=== PATIENT | female | born 1985 | race Hispanic/Latino ===

== ENCOUNTER 2019-01-30 10:18 | Emergency (ER) | payer OTHER, SELFPAY ==
[2019-01-30 10:28] VITALS: BP 121/75; PULSE 102; RESP 18; TEMP 37.3; O2SAT 96
[2019-01-30] MEDS: KETOROLAC 60 MG/2 ML VIAL 30 MG IV (11:32)
[2019-01-30] MEDS: ONDANSETRON 4 MG/2 ML INJ IV (11:32)
[2019-01-30] MEDS: SODIUM CHLORIDE 0.9% 1,000 ML 1000 ML IV (11:33)
[2019-01-30 11:42] LABS: Add Manual Diff / Slide Review NO; Alanine Aminotransferase 17 IU/L (9-52); Albumin 4.3 g/dL (3.5-5.0); Albumin Globulin Ratio 1.3 (1.0-2.8); Alkaline Phosphatase 69 U/L (38-126); Aspartate Aminotransferase 16 IU/L (14-36); Basophils Absolute Auto 0 /uL (0-100); Basophils Percent Auto 0.5 % (0-2); Bilirubin Total 0.3 mg/dL (0.2-1.3); Blood Urea Nitrogen 7 mg/dL (7-17); Carbon Dioxide 24 mmol/L (22-32); Chloride 105 mmol/L (98-107); Eosinophils Absolute Auto 0 /uL (0-450); Eosinophils Percent Auto 0.3 % (2-4); Estimated Glomerular Filt Rate > 60.0 mL/min (>60); Globulin 3.2 g/dL (1.7-4.1); Glucose 105 mg/dL (70-100); HEMOLYSIS < 15 (0-50); Hematocrit 38.3 % (36-46); Hemoglobin 13.2 g/dL (12.0-16.0); Lymphocytes Absolute Auto 1100 /uL (1100-4500); Lymphocytes Percent Auto 12.7 % (25-40); Mean Corpuscular HGB Conc 34.4 % (30-36); Mean Corpuscular Hemoglobin 29.7 PG (26-34); Mean Corpuscular Volume 86.4 fL (80-100); Monocytes Absolute Auto 500 /uL (0-900); Monocytes Percent Auto 5.6 % (3-14); Neutrophils Absolute Auto 7200 /uL (1500-7000); Neutrophils Percent Auto 80.9 % (50-75); Platelet Count 255 X10^3/uL (150-400); Potassium 4.2 mmol/L (3.4-5.1); Red Blood Cell Count 4.44 X10^6/uL (4.0-5.2); Red Cell Distribution Width 12.7 % (11.6-14.8); Sodium 140 mmol/L (137-145); Total Protein 7.5 g/dL (6.3-8.2); White Blood Cell Count 8.9 X10^3/uL (4.5-11.0)
--- NOTE | 2019-01-30 12:01 | ED.NAVMDI ---
HPI - Nausea/Vomiting/Diarrhea General Chief complaint: Nausea/Vomiting/Diarrhea Stated complaint: THROWING UP Time Seen by Provider: 01/30/19 11:27 Source: patient Mode of arrival: ambulatory Limitations: no limitations History of Present Illness HPI Narrative: Patient is a 33-year-old diagnosed with strep 2 days. She is given shot of Rocephin in pen VK. She says she has been so nauseous due to air or anything hitting her throat that she immediately gets nauseous and throws up and has been unable to take any of her medication. She says her throat is feeling much better. She is not able tolerate food or fluids. Related Data Home Medications Medication Instructions Recorded Confirmed levonorgestrel [Mirena] 52 mg INTRAU QDAY #0 12/30/17 Previous Rx's Medication Instructions Recorded albuterol sulfate [Proventil HFA] 2 puff INH Q4HP PRN #1 u 04/17/17 [VSL#3] 1 cap PO TID #90 cap 12/03/17 ketoconazole [Nizoral] 1 joann TOPICAL SEE INSTRUCTIONS 12/03/17 #120 ml ondansetron HCl 4 mg tablet 4 mg PO Q6-8H PRN #14 tab 01/28/19 penicillin V potassium 500 mg 500 mg PO Q8H 10 Days #30 tab 01/28/19 tablet metoclopramide HCl [Reglan] 5 mg PO Q6H PRN #14 tab 01/30/19 Allergies Allergy/AdvReac Type Severity Reaction Status Date / Time azithromycin [AZITHROMYCIN] Allergy Mild RASH Verified 01/30/19 10:33 hydromorphone [HYDROMORPHONE] Allergy Mild ITCHING Verified 01/30/19 10:33 FROM DILAUDID shellfish derived Allergy Mild RASH/SWOLLE Verified 01/30/19 10:33 [SHELLFISH DERIVED] N latex [LATEX] Allergy Unknown Verified 01/30/19 10:33 Review of Systems Review of Systems ROS Unobtainable: All systems reviewed & are unremarkable except as noted in HPI and below Constitutional Denies chills, Denies fever(s), Denies lethargy and Denies weakness Eyes Denies change in vision, Denies eye discharge, Denies irritation and Denies loss of vision ENT Ears, Nose, Mouth, and Throat: Reports as per HPI, Denies change in voice, Denies neck pain and Reports sore throat Cardiovascular Denies chest pain, Denies irregular heart rhythm, Denies lightheadedness, Denies palpitations, Denies dyspnea, Denies dyspnea on exertion and Denies orthopnea Respiratory Denies cough, Denies dyspnea, Denies dyspnea on exertion and Denies wheezing Gastrointestinal Gastrointestinal: Denies abdominal pain, Denies diarrhea, Reports nausea and Reports vomiting Genitourinary Denies hematuria, Denies flank pain, Denies urinary incontinence and Denies urinary urgency Musculoskeletal Denies neck pain Integumentary/Breasts Denies pruritus, Denies erythema, Denies rash and Denies wounds Neurologic Denies loss of vision and Denies weakness Endocrine Denies palpitations Allergic/Immunologic Denies wheezing [facility] Medical History Abnormal Pap smear of cervix (Resolved 08/2010) Surgical History History of esophagogastroduodenoscopy (EGD) (Resolved 08/2016) Status post endoscopic retrograde cholangiopancreatography (Resolved 07/2013) Status post laparoscopic cholecystectomy (Resolved 07/2013) Family History Mother Asthma Graves' disease History of thyroidectomy Sister Asthma Daughter Asthma Social History Smoking Status: Never smoker Family History Mother Asthma Graves' disease History of thyroidectomy Sister Asthma Daughter Asthma Social History Smoking Status: Never smoker Exam Initial Vital Signs Initial Vital Signs: Vital Signs Temperature 99.1 F 01/30/19 10:28 Pulse Rate 102 H 01/30/19 10:28 Respiratory Rate 18 01/30/19 10:28 Blood Pressure 121/75 01/30/19 10:28 Pulse Oximetry 96 01/30/19 10:28 GENERAL: Well-appearing, well-nourished and in no acute distress. HEENT: Head atraumatic,EOMI, pupils reactive, face symmetric, moist mucous membranes PHARYNX: No erythema, no tonsillar exudate, no cervical lymphadenopathy CARDIOVASCULAR: Regular rate and rhythm without murmurs, rubs or gallops. RESPIRATORY: Breath sounds equal bilaterally, no wheezes rales or rhonchi. ABDOMEN: Soft, nontender. Normoactive bowel sounds all 4 quadrants. No guarding or rebound. EXTREMITIES: Normal range of motion, no clubbing or edema. Neurovascularly intact NEUROLOGICAL: Alert and oriented x4.Normal gait and speech. Cranial nerves II through XII grossly intact. SKIN: Warm, dry, no laceration, no petechiae, no rashes or lesions. Course Orders Ordered: ED Orders 01/30/19 11:25 Complete Blood Count AUTO DIFF Stat Comprehensive Metabolic Panel Stat Discontinued Medications Sodium Chloride (Normal Saline 0.9%) 1,000 mls @ 1,000 mls/hr IV BOLUS ONE Stop: 01/30/19 12:15 Last Infusion: 01/30/19 12:35 Dose: 0 mls/hr Admin: 01/30/19 11:33 Dose: 1,000 mls/hr Ketorolac Tromethamine (Toradol) 30 mg IV NOW ONE Stop: 01/30/19 11:32 Last Admin: 01/30/19 11:32 Dose: 30 mg Metoclopramide HCl (Reglan) 10 mg IV NOW ONE Stop: 01/30/19 12:01 Last Admin: 01/30/19 12:12 Dose: 10 mg Ondansetron HCl (Zofran) 4 mg IV NOW ONE Stop: 01/30/19 11:17 Last Admin: 01/30/19 11:32 Dose: 4 mg Vital Signs - 8 hr 01/30/19 10:28 01/30/19 13:45 Temperature 99.1 F Pulse Rate 102 H 101 H Respiratory Rate 18 20 Blood Pressure 121/75 123/76 Pulse Oximetry 96 98 MDM - Nausea/Vomiting/Diarrhea Lab Data Attestation: I reviewed the patient's lab results. Result diagrams: 01/30/19 11:25 01/30/19 11:25 Lab Results 01/30/19 01/30/19 Range/Units 11:25 11:25 WBC 8.9 (4.5-11.0) X10^3/uL RBC 4.44 (4.0-5.2) X10^6/uL Hgb 13.2 (12.0-16.0) g/dL Hct 38.3 (36-46) % MCV 86.4 (80-100) fL MCH 29.7 (26-34) PG MCHC 34.4 (30-36) % RDW 12.7 (11.6-14.8) % Plt Count 255 (150-400) X10^3/uL Neut % (Auto) 80.9 H (50-75) % Lymph % (Auto) 12.7 L (25-40) % [place] % (Auto) 5.6 (3-14) % Eos % (Auto) 0.3 L (2-4) % Baso % (Auto) 0.5 (0-2) % Neut # (Auto) 7200 H (5966-8254) /uL Lymph # (Auto) 1100 (3445-7531) /uL [place] # (Auto) 500 (0-900) /uL Eos # (Auto) 0 (0-450) /uL Baso # (Auto) 0 (0-100) /uL Sodium 140 (137-145) mmol/L Potassium 4.2 (3.4-5.1) mmol/L Chloride 105 (98-107) mmol/L Carbon Dioxide 24 (22-32) mmol/L BUN 7 (7-17) mg/dL Creatinine 0.50 L (0.52-1.04) mg/dL Estimated GFR > 60.0 (>60) mL/min BUN/Creatinine Ratio 14.0 (6-22) Glucose 105 H (70-100) mg/dL Calcium 9.0 (8.4-10.2) mg/dL Total Bilirubin 0.3 (0.2-1.3) mg/dL AST 16 (14-36) IU/L ALT 17 (9-52) IU/L Alkaline Phosphatase 69 (38-126) U/L Total Protein 7.5 (6.3-8.2) g/dL Albumin 4.3 (3.5-5.0) g/dL Globulin 3.2 (1.7-4.1) g/dL Albumin/Globulin Ratio 1.3 (1.0-2.8) Point of Care Testing Test Results Negative Urine Dip Bedside Urine Glucose Negative Bedside Urine Bilirubin - Negative Bedside Urine Ketone - Negative Urine Specific [place] 1.015 Bedside Urine Occult Blood +/- Bedside Urine pH 6.5 Bedside Urine Protein - Negative Bedside Urine Urobilinogen - Negative Bedside Urine Nitrite - Negative Bedside Urine Leukocytes - Negative Esterase MDM Narrative Medical decision making narrative: Tolerating fluids overall feeling much better after Reglan. at this time would continue antibiotics as prescribed. Discharge Plan Departure Patient Disposition: Home Clinical Impression: Strep pharyngitis Discharge Date/Time: 01/30/19 13:46 Interventions: ED Discharge Assessment Last Done: 01/30/19 13:45 Instructions: DI for Strep Throat Activity Restrictions/Additional Instructions: *You have been diagnosed with strep throat *What to do: Blood work today is reassuring. Try to increase her fluid intake *Continue to take medications as directed Reglan 5 mg he every 6-8 hours if needed for nausea vomiting finish antibiotics as previously perscribed *Follow up with your primary care provider in 2-3 days *Return to ER if you should have inability to tolerate fluids or any new, worsening or concerning symptoms Prescriptions: New metoclopramide HCl [Reglan] 5 mg tablet 5 mg PO Q6H PRN (Reason: nausea and vomiting) Qty: 14 RF: 0 No Action albuterol sulfate [Proventil HFA] 90 MCG/PUFF HFA aerosol inhaler 2 puff INH Q4HP PRNQty: 1 RF: 3 ketoconazole [Nizoral] 2 % shampoo 1 joann Topical SEE INSTRUCTIONS Qty: 120 RF: 1 [VSL#3] 1 cap PO TID Qty: 90 RF: 0 levonorgestrel [Mirena] 1 EACH intrauterine device 52 mg INTRAU QDAY Qty: 0 RF: 0 penicillin V potassium 500 mg tablet 500 mg PO Q8H 10 Days Qty: 30 RF: 0 ondansetron HCl 4 mg tablet 4 mg PO Q6-8H PRN (Reason: nausea and vomiting) Qty: 14 RF: 0 Referrals: Khadra Brito DO [Primary Care Provider] -
[2019-01-30] MEDS: METOCLOPRAMIDE 10 MG/2 ML INJ IV (12:12)
--- NOTE | 2019-01-30 12:16 | PC.NURSE ---
Pt c/o IV site being painful. Site has no evidence of infiltration. No redness or puffiness. Fluids run freely without pain. It is offered to pull current IV out and have another nurse place another IV. Pt is nauseous and doesnt answer question of this. Zofran given although pt states its never worked the other 9 million times Breana had it. It is explained that this hospital does not have IV phenergan
[2019-01-30 13:45] VITALS: BP 123/76; PULSE 101; RESP 20; O2SAT 98
== END 2019-01-30 13:46 | disposition home or self-care (01) ==
PROVIDERS: Emergency Provider Emergency Medicine; PCP Family Medicine
DX: J02.0 Streptococcal pharyngitis (principal); R11.2 Nausea with vomiting, unspecified; R19.7 Diarrhea, unspecified
CPT/HCPCS: 36415; 36591; 80053; 81003; 81025; 85025; 96361; 96374; 96375; 99283; 99284; J1885; J2405; J2765

== ENCOUNTER → 2019-07-22 13:35 | Outpatient (CLI) | payer OTHER, SELFPAY | PROVIDERS: PCP Family Medicine; Visit Provider Physician Assistant | DX: J02.9 Acute pharyngitis, unspecified (principal) | CPT/HCPCS: 87070 ==

== ENCOUNTER → 2020-07-09 15:39 | Outpatient (CLI) | payer OTHER, SELFPAY | PROVIDERS: PCP Family Medicine; Visit Provider Physician Assistant | DX: J02.9 Acute pharyngitis, unspecified (principal) | CPT/HCPCS: 87070 ==

== ENCOUNTER → 2020-07-31 09:48 | Outpatient (CLI) | payer OTHER, SELFPAY ==
[2020-07-31 09:54] LABS: Bacteria Urine None Seen; RBC Urine None Seen (0-5/HPF); WBC Urine None Seen (0-5/HPF)
[2020-07-31 10:35] LABS: Appearance Urine UA CLEAR; Bilirubin Urine UA NEGATIVE (NEGATIVE); Color Urine UA YELLOW; Glucose Urine UA TRACE g/dL (Negative); Ketones Urine UA NEGATIVE (NEGATIVE); Leukocyte Esterase Urine UA NEGATIVE (NEGATIVE); Nitrite Urine UA NEGATIVE (Negative); Occult Blood Urine UA NEGATIVE (Negative); Protein Urine UA NEGATIVE (Negative); Urobilinogen Urine UA 0.2 E.U./dL (0.2)
[2020-07-31 10:43] LABS: Culture Indicated Urine Cult Not Indicated; Urine Comments Microscopic Normal
[2020-07-31 10:55] LABS: Add Manual Diff / Slide Review NO; Alanine Aminotransferase 27 IU/L (<35); Albumin 4.6 g/dL (3.5-5.0); Albumin Globulin Ratio 1.3 (1.0-2.8); Alkaline Phosphatase 72 U/L (38-126); Aspartate Aminotransferase 23 IU/L (14-36); BUN Creatinine Ratio 17.5 (6-22); Basophils Absolute Auto 100 /uL (0-100); Basophils Percent Auto 0.8 % (0-2); Bilirubin Total 0.7 mg/dL (0.2-1.3); Blood Urea Nitrogen 10 mg/dL (7-17); Calcium 9.2 mg/dL (8.4-10.2); Carbon Dioxide 29 mmol/L (22-32); Chloride 103 mmol/L (98-107); Eosinophils Absolute Auto 100 /uL (0-450); Eosinophils Percent Auto 1.6 % (2-4); Estimated Glomerular Filt Rate > 60.0 mL/min (>60); Globulin 3.5 g/dL (1.7-4.1); Glucose 99 mg/dL (70-100); HEMOLYSIS < 15 (0-50); Hematocrit 41.5 % (36-46); Hemoglobin 14.4 g/dL (12.0-16.0); Lipase 46 U/L (23-300); Lymphocytes Absolute Auto 2300 /uL (1100-4500); Lymphocytes Percent Auto 26.5 % (25-40); Mean Corpuscular HGB Conc 34.7 % (30-36); Mean Corpuscular Hemoglobin 30.6 PG (26-34); Mean Corpuscular Volume 88.1 fL (80-100); Monocytes Absolute Auto 500 /uL (0-900); Monocytes Percent Auto 6.1 % (3-14); Neutrophils Absolute Auto 5600 /uL (1500-7000); Platelet Count 291 X10^3/uL (150-400); Potassium 3.9 mmol/L (3.4-5.1); Red Blood Cell Count 4.71 X10^6/uL (4.0-5.2); Red Cell Distribution Width 12.9 % (11.6-14.8); Sodium 140 mmol/L (137-145); Total Protein 8.1 g/dL (6.3-8.2); White Blood Cell Count 8.6 X10^3/uL (4.5-11.0)
[2020-07-31 11:16] LABS: TSH w/ Reflex to FT4 2.32 uIU/mL (0.47-4.68)
== END ==
PROVIDERS: PCP Family Medicine; Referring Provider Family Medicine; Visit Provider Family Medicine
DX: R11.15 Cyclical vomiting syndrome unrelated to migraine (principal)
CPT/HCPCS: 36415; 80053; 81001; 83036; 83690; 84443; 85025

== ENCOUNTER → 2021-09-17 12:57 | Outpatient (CLI) | payer OTHER, SELFPAY ==
[2021-09-17 15:48] LABS: COVID19 -Nasal RAPID Negative (Negative)
== END ==
PROVIDERS: PCP Family Medicine; Referring Provider Family Medicine; Visit Provider Family Medicine
DX: Z01.812 Encounter for preprocedural laboratory examination (principal)
CPT/HCPCS: 87635

== ENCOUNTER 2022-06-06 23:50 | Emergency (ER) | payer OTHER, SELFPAY ==
[2022-06-07 00:02] VITALS: BP 138/88; PULSE 105; RESP 21; TEMP 36.6; O2SAT 98
--- NOTE | 2022-06-07 00:03 | ED_ITS ---
HPI - Headache General Chief Complaint: Headache Stated Complaint: MIGRAINE AND KEEP FOOD DOWN Time Seen by Provider: 06/07/22 00:02 History of Present Illness HPI Narrative: 36-year-old female nonsmoker with history of migraines presents with a chief complaint of 4 days of vomiting and then a gradually worsening migraine-type headache over the course of the day. She states this is rather typical for her course and she typically has vomiting prior to her headaches. She denies any f ever or chills and has had no trauma or injury. She states that her headache is generalized and intense and seems to be made worse by bright lights and loud noise. She denies any neurologic symptoms such as dizziness, gait disturbance or extremity numbness, tingling or weakness. Related Data Home Medications Medication Instructions Recorded Confirmed levonorgestrel 20 mcg/24 hours (7 52 mg INTRAU QDAY ##0 12/30/17 07/22/19 yrs) 52 mg intrauterine device (Mirena) Previous Rx's Medication Instructions Recorded albuterol sulfate 90 mcg/actuation 2 puff INH Q4HP PRN ##1 04/17/17 aerosol inhaler (Proventil HFA) ketoconazole 2 % shampoo (Nizoral) 1 joann topical SEE INSTRUCTIONS 12/03/17 #120 mL metoclopramide HCl 10 mg tablet 10 mg PO Q6H PRN nausea and 06/07/22 (Reglan) vomiting #20 tabs Allergies Allergy/AdvReac Type Severity Reaction Status Date / Time azithromycin [AZITHROMYCIN] Allergy Mild RASH Verified 07/14/20 15:48 hydromorphone [HYDROMORPHONE] Allergy Mild ITCHING Verified 07/14/20 15:48 FROM DILAUDID shellfish derived Allergy Mild RASH/SWOLLE Verified 07/14/20 15:48 [SHELLFISH DERIVED] N latex [LATEX] Allergy Unknown Verified 07/14/20 15:48 Review of Systems Review of Systems Narrative: GENERAL: Denies chills, fatigue, malaise, fever, sweats. HEENT: Denies sinus pain, ear pain, sore throat, difficulty swallowing, dizziness. RESPIRATORY: Denies dyspnea, cough, wheezing, hemoptysis, sputum. CARDIOVASCULAR: Denies chest pain, palpitations, orthopnea, edema, GASTROINTESTINAL: See HPI : Denies dysuria, frequency, incontinence, hematuria, urinary retention. MUSCULOSKELETAL: denies weakness, joint pain, or bony pain SKIN: Denies rash, skin lesions, or other NEUROLOGIC: See HPI PSYCHIATRIC: No concerning psychosocial issues. 12 point review of systems is negative except for those stated above Patient History Medical History (Updated 06/07/22 @ 01:51 by Roosevelt Lynn DO) Abnormal Pap smear of cervix (08/2010) Asthma (03/16/14) Gastroparesis (12/26/16) History of cervical dysplasia (06/27/11) Surgical History History of esophagogastroduodenoscopy (EGD) (08/2016) Status post endoscopic retrograde cholangiopancreatography (07/2013) Status post laparoscopic cholecystectomy (07/2013) Family History Mother Asthma Graves' disease History of thyroidectomy Sister Asthma Daughter Asthma Social History Smoking Status: Never smoker Smoking Status: Never smoker alcohol intake frequency: 0-2 drinks per day Substance Use Type: does not use Exam Narrative Exam Narrative: GENERAL: [36] year old patient appears stated age. Well-developed patient, in mild distress. HEAD: Atraumatic. Normocephalic. EYES: Pupils equal round and reactive. Extraocular motions intact. No scleral icterus. No injection or drainage. ENT: Nose without bleeding, purulent drainage. Throat without erythema, tonsillar hypertrophy or exudate. Airway patent. NECK: Trachea midline. Non tender CARDIOVASCULAR: Regular rate and rhythm without murmurs, gallops, or rubs. RESPIRATORY: Clear to auscultation. Breath sounds equal bilaterally. No wheezes, rales, or rhonchi. GASTROINTESTINAL: Abdomen soft, non-tender, nondistended. EXTREMITIES: No edema or joint tenderness. BACK: Nontender without deformity or crepitance. No flank tenderness. NEURO: AOx3. SKIN: No rash or erythema of visible areas NIH Stroke Scale 1a. LOC: Patient is alert and keenly responsive (0) 1b. LOC Questions: Patient answers both LOC questions accurately (0) 1c. LOC Commands: Patient performs both tasks correctly (0) 2. Best Gaze: Normal (0) 3. Visual: No visual loss (0) 4. Facial palsy: Normal symmetrical movements (0) 5. Motor arm: No drift (0) 6. Motor leg: No drift (0) 7. Limb ataxia: Absent (0) 8. Sensory: Normal (0) 9. Best language: No aphasia; normal (0) 10. Dysarthria: Normal (0) 11. Extinction and inattention: No abnormality (0) NIHSS: 0 Initial Vital Signs Initial Vital Signs: Vital Signs Temperature 98 F 06/07/22 00:02 Pulse Rate 105 H 06/07/22 00:02 Respiratory Rate 21 06/07/22 00:02 Blood Pressure 138/88 06/07/22 00:02 Pulse Oximetry 98 06/07/22 00:02 Oxygen Delivery Method 06/07/22 00:02 Course Orders Ordered: ED Orders 06/07/22 00:07 CT head/brain wo con Stat Sodium Chloride (Normal Saline 0.9%) 1,000 mls @ 1,000 mls/hr IV BOLUS ONE Stop: 06/07/22 02:11 Last Admin: 06/07/22 01:16 Dose: 1,000 mls/hr Documented By: KANDI Discontinued Medications Diphenhydramine HCl (Diphenhydramine 50 Mg/Ml Vial) 25 mg IV NOW ONE Stop: 06/07/22 00:04 Last Admin: 06/07/22 00:16 Dose: 25 mg Documented By: KANDI Sodium Chloride (Normal Saline 0.9%) 1,000 mls @ 1,000 mls/hr IV BOLUS ONE Stop: 06/07/22 01:02 Last Infusion: 06/07/22 01:17 Dose: 0 mls/hr Documented By: Admin: 06/07/22 00:16 Dose: 1,000 mls/hr Documented By: KANDI Ketorolac Tromethamine (Ketorolac 30 Mg/Ml Vial) 15 mg IV NOW ONE Stop: 06/07/22 00:35 Last Admin: 06/07/22 00:51 Dose: 15 mg Documented By: KANDI Metoclopramide HCl (Metoclopramide 10 Mg/2 Ml Inj) 10 mg IV NOW ONE Stop: 06/07/22 00:04 Last Admin: 06/07/22 00:16 Dose: 10 mg Documented By: KANDI Reevaluation(s) Reevaluation #1: Significant, though not complete resolution of symptoms Vital Signs Vital signs: Vital Signs - 8 hr 06/07/22 00:02 Temperature 98 F Pulse Rate 105 H Respiratory Rate 21 Blood Pressure 138/88 Pulse Oximetry 98 Oxygen Delivery Method Room Air MDM - Headache Imaging Data CT scan - head: Radiologist's Impression: [address] [address] [address] Scan Report Signed Patient: Linda Albrecht MR#: [id number] : 1985 Acct:[id number] Age/Sex: 36 / F Date of Service: 06/07/22 Loc: ED Accession Number: [id number] ?? Procedure: CT head/brain wo con Ordering Provider: Roosevelt Lynn D.O. PROCEDURE:? CT HEAD/BRAIN WO CON ? INDICATIONS:? worst headache, vomiting ? TECHNIQUE:? Noncontrast 4.5 mm thick angled axial sections acquired from the foramen magnum to the vertex, with coronal and sagittal reformats.? For radiation dose reduction, the following was used:? automated exposure control, adjustment of mA and/or kV according to patient size.? ? COMPARISON:? None. ? FINDINGS:? Image quality:? Excellent.? ? CSF spaces:? Basal cisterns are patent.? No extra-axial fluid collections.? Ventricles are normal in size and shape.? ? Brain:? No intracranial hemorrhage, mass, or mass effect.? Forbes-white matter interface appears preserved.? There are a few indistinct punctate densities within the bilateral basal ganglia suggestive of mild physiologic calcifications. ? Skull and face:? Calvarium and visualized facial bones are intact, without suspicious lesions.? ? Sinuses:? Visualized sinuses and mastoids are clear.? ? IMPRESSION:? ? 1. No definite acute intracranial abnormality. ? ? Dictated by: Mnia Velasquez M.D. on 06/07/2022 at 0:23 ? ? Approved by: Mina Velasquez M.D. on 06/07/2022 at 0:25 ? MDM Narrative Medical decision making narrative: Headache considerations include, but not limited to: Subarachnoid hemorrhage, but unlikely as patient denies sudden onset of pain, not worst of life, or neck pain Meningitis considered, but thought unlikely given lack of Brudzinski's, Kernig's sign, altered mental status or fever Giant cell arteritis considered, but thought unlikely given lack of unilateral findings, pain in episcopal, vision change HTN Emergency considered, but thought unlikely given normal vitals Other serious diagnoses considered unlikely given lack of red flag findings such as sudden onset, increasing frequency, immunocompromise, systemic signs (fever, chills, stiff neck, or rash), focal neurologic findings, trauma, blood thinners, etc. Discharge Plan Departure Patient Disposition: Home Clinical Impression: Migraine Instructions: DI for Migraine Activity Restrictions/Additional Instructions: *You have been diagnosed with [ Headache, likely migraine. Your head CT had no abnormalities. ] *What to do: *Take medications as directed *Follow up with your primary care provider in 2-3 days, call for an appointment. Let them know you were seen in the Emergency Department and that we ask that you be seen in follow up *Return to ER if you should have any new, worsening or concerning symptoms, such as [ fever > 101F, neck pain or stiffness, vomiting, confusion, seizure, focal weakness, vision change, speech deficit or other concerning symptoms ] Prescriptions: New metoclopramide HCl [Reglan] 10 mg tablet 10 mg PO Q6H PRN (Reason: nausea and vomiting) Qty: 20 0RF No Action albuterol sulfate [Proventil HFA] 90 MCG/PUFF HFA aerosol inhaler 2 puff INH Q4HP PRNQty: 1 3RF ketoconazole [Nizoral] 2 % shampoo 1 joann Topical SEE INSTRUCTIONS Qty: 120 1RF levonorgestrel [Mirena] 1 EACH intrauterine device 52 mg INTRAU QDAY Qty: 0 Referrals: Rosas Palm MD [Primary Care Provider] -
--- NOTE | 2022-06-07 00:07 | DI.CT.S_ITS ---
PROCEDURE: CT HEAD/BRAIN WO CON INDICATIONS: worst headache, vomiting TECHNIQUE: Noncontrast 4.5 mm thick angled axial sections acquired from the foramen magnum to the vertex, with coronal and sagittal reformats. For radiation dose reduction, the following was used: automated exposure control, adjustment of mA and/or kV according to patient size. COMPARISON: None. FINDINGS: Image quality: Excellent. CSF spaces: Basal cisterns are patent. No extra-axial fluid collections. Ventricles are normal in size and shape. Brain: No intracranial hemorrhage, mass, or mass effect. Forbes-white matter interface appears preserved. There are a few indistinct punctate densities within the bilateral basal ganglia suggestive of mild physiologic calcifications. Skull and face: Calvarium and visualized facial bones are intact, without suspicious lesions. Sinuses: Visualized sinuses and mastoids are clear. IMPRESSION: 1. No definite acute intracranial abnormality. Dictated by: Mina Velasquez M.D. on 06/07/2022 at 0:23 Approved by: Mina Velasquez M.D. on 06/07/2022 at 0:25
[2022-06-07] MEDS: SODIUM CHLORIDE 0.9% 1,000 ML 1000 ML IV ×2 (00:16→01:16)
[2022-06-07] MEDS: diphenhydrAMINE 50 MG/ML VIAL 25 MG IV (00:16)
[2022-06-07] MEDS: METOCLOPRAMIDE 10 MG/2 ML INJ IV (00:16)
[2022-06-07] MEDS: KETOROLAC 30 MG/ML VIAL 15 MG IV (00:51)
[2022-06-07 02:10] VITALS: BP 125/79; PULSE 88; RESP 18; O2SAT 99
== END 2022-06-07 02:10 | disposition home or self-care (01) ==
PROVIDERS: Emergency Provider Emergency Medicine; PCP Family Medicine
DX: G43.909 Migraine, unspecified, not intractable, without status migrainosus (principal)
CPT/HCPCS: 36415; 70450; 96361; 96374; 96375; 99284; J1200; J1885; J2765

== ENCOUNTER 2022-12-18 09:41 | Emergency (ER) | payer OTHER, SELFPAY ==
[2022-12-18] VITALS (11 sets, daily range): BP systolic 119–126; BP diastolic 72–83; PULSE 89–111; RESP 28; TEMP 37.2; O2SAT 95–98; BMI 38.2
[2022-12-18 10:35] LABS: COVID19 -Nasal RAPID Negative (Negative)
--- NOTE | 2022-12-18 11:09 | DI.RAD.S_ITS ---
PROCEDURE: XR CHEST 1V INDICATIONS: cough TECHNIQUE: One view of the chest was acquired. COMPARISON: None. FINDINGS: Surgical changes and devices: None. Lungs and pleura: Lungs are clear. No pleural effusions or pneumothorax. Mediastinum: Mediastinal contours appear normal. Heart size is normal. Bones and chest wall: No suspicious bony lesions. Overlying soft tissues appear unremarkable. IMPRESSION: No acute cardiopulmonary findings Approved by: Jose Trimble M.D. on 12/18/2022 at 11:15
--- NOTE | 2022-12-18 11:10 | ED_ITS ---
HPI - URI/Sore Throat General Chief Complaint: Shortness of Breath/Dyspnea Stated Complaint: possible pneumonia,SOB Time Seen by Provider: 12/18/22 11:03 Source: patient Mode of arrival: Ambulatory History of Present Illness HPI Narrative: Patient is COVID vaccinated. Complains of cough cold congestion runny nose for the past 2 weeks. Has had productive whitish sputum cough. Patient has asthma. Has been using her albuterol medications and is out of them. Patient also states may have UTI. Denies does not want a test. Tachycardia noted, patient took breathing treatment prior to arrival. No history of blood clots in legs or lungs Related Data Home Medications Medication Instructions Recorded Confirmed levonorgestrel 21 mcg/24 hours (8 52 mg INTRAU QDAY ##0 12/30/17 07/22/19 yrs) 52 mg intrauterine device (Mirena) Previous Rx's Medication Instructions Recorded albuterol sulfate 90 mcg/actuation 2 puff INH Q4HP PRN ##1 04/17/17 aerosol inhaler (Proventil HFA) ketoconazole 2 % shampoo (Nizoral) 1 joann topical SEE INSTRUCTIONS 12/03/17 #120 mL metoclopramide HCl 10 mg tablet 10 mg PO Q6H PRN nausea and 06/07/22 (Reglan) vomiting #20 tabs albuterol sulfate 2.5 mg/3 mL 2.5 mg (3 mL) inhalation Q4-6H PRN 12/18/22 (0.083 %) solution for nebulization shortness of breath or wheezing #75 mL albuterol sulfate 90 mcg/actuation 2 inhalation inhalation QID PRN 12/18/22 aerosol inhaler (Ventolin HFA) shortness of breath or wheezing #6.7 grams benzonatate 100 mg capsule 100 mg PO TID PRN cough #20 caps 12/18/22 Allergies Allergy/AdvReac Type Severity Reaction Status Date / Time azithromycin [AZITHROMYCIN] Allergy Mild RASH Verified 12/18/22 10:02 hydromorphone [HYDROMORPHONE] Allergy Mild ITCHING Verified 12/18/22 10:02 FROM DILAUDID shellfish derived Allergy Mild RASH/SWOLLE Verified 12/18/22 10:02 [SHELLFISH DERIVED] N latex [LATEX] Allergy Unknown Verified 12/18/22 10:02 Review of Systems Review of Systems Narrative: GENERAL: negative chills, fatigue, malaise, fever, sweats. HEENT: negative sinus pain, ear pain, sore throat, positive nasal congestion and rhinorrhea RESPIRATORY: Positive dyspnea, cough CARDIOVASCULAR: negative chest pain, palpitations GASTROINTESTINAL: negative nausea, vomiting, abdominal pain : negative dysuria, frequency, hematuria MUSCULOSKELETAL: negative muscle or bony pain SKIN: negative rash, skin lesions NEUROLOGIC: negative weakness, numbness ROS Unobtainable: All systems reviewed & are unremarkable except as noted in HPI and below Patient History Medical History (Updated 12/18/22 @ 13:09 by Milan Gramajo MD) Abnormal Pap smear of cervix (08/2010) Asthma (03/16/14) Gastroparesis (12/26/16) History of cervical dysplasia (06/27/11) Surgical History History of esophagogastroduodenoscopy (EGD) (08/2016) Status post endoscopic retrograde cholangiopancreatography (07/2013) Status post laparoscopic cholecystectomy (07/2013) Family History Mother Asthma Graves' disease History of thyroidectomy Sister Asthma Daughter Asthma Social History Smoking Status: Never smoker Smoking Status: Never smoker alcohol intake frequency: 0-2 drinks per day Substance Use Type: marijuana Exam Narrative Exam Narrative: GENERAL: in no distress, not toxic not dyspneic HEAD: Normocephalic. EYES: Pupils equal round ENT: Mucous membranes moist. NECK: Trachea midline. CARDIOVASCULAR: Regular rate and rhythm without murmurs RESPIRATORY: Clear to auscultation. Breath sounds equal bilaterally. No wheezes, rales, or rhonchi. Speaking full sentences. No respiratory distress GASTROINTESTINAL: Abdomen soft, non-tender EXTREMITIES: No gross deformities. BACK: No flank tenderness. NEURO: AOx4. SKIN: Warm and dry PSYCH: Not anxious, is cooperative Initial Vital Signs Initial Vital Signs: Vital Signs Pulse Rate 111 H 12/18/22 09:56 Blood Pressure 126/80 12/18/22 09:56 Pulse Oximetry 95 12/18/22 09:56 Course Orders Ordered: ED Orders 12/18/22 09:58 COVID19 -Nasal RAPID/Pre-Proc Stat 12/18/22 11:09 XR chest 1V Stat 12/18/22 11:17 Urinalysis and Microscopic Stat 12/18/22 11:29 EKG-12 Lead Stat 12/18/22 11:52 Complete Blood Count AUTO DIFF Stat Comprehensive Metabolic Panel Stat D Dimer Stat Vital Signs Vital signs: Vital Signs - 8 hr 12/18/22 10:02 12/18/22 09:56 12/18/22 09:56 Temperature 98.9 F Pulse Rate 108 H 111 H Respiratory Rate 28 H Blood Pressure 126/80 126/80 Pulse Oximetry 95 95 Oxygen Delivery Method Room Air 12/18/22 10:00 12/18/22 10:30 12/18/22 11:00 Temperature Pulse Rate 103 H 89 96 H Respiratory Rate Blood Pressure Pulse Oximetry 98 96 98 Oxygen Delivery Method 12/18/22 11:30 12/18/22 12:00 12/18/22 12:07 Temperature Pulse Rate 107 H 90 Respiratory Rate Blood Pressure 119/83 Pulse Oximetry 98 97 Oxygen Delivery Method 12/18/22 12:07 Temperature Pulse Rate 93 H Respiratory Rate Blood Pressure Pulse Oximetry 97 Oxygen Delivery Method MDM - URI/Sore Throat Lab Data 12/18/22 11:52 12/18/22 11:52 Labs: Lab Results 12/18/22 12/18/22 12/18/22 Range/Units 09:58 11:52 11:52 WBC 9.0 (4.5-11.0) X10^3/uL RBC 4.53 (4.0-5.2) X10^6/uL Hgb 13.7 (12.0-16.0) g/dL Hct 39.3 (36-46) % MCV 86.7 (80-100) fL MCH 30.2 (26-34) PG MCHC 34.8 (30-36) % RDW 13.1 (11.6-14.8) % Plt Count 301 (150-400) X10^3/uL Neut % (Auto) 73.4 (50-75) % Lymph % (Auto) 14.9 L (25-40) % [place] % (Auto) 7.6 (3-14) % Eos % (Auto) 3.2 (2-4) % Baso % (Auto) 0.9 (0-2) % Neut # (Auto) 6600 (6367-9960) /uL Lymph # (Auto) 1300 (4227-2363) /uL [place] # (Auto) 700 (0-900) /uL Eos # (Auto) 300 (0-450) /uL Baso # (Auto) 100 (0-100) /uL D-Dimer 396 (<500) ng/ml Sodium (137-145) mmol/L Potassium (3.4-5.1) mmol/L Chloride (98-107) mmol/L Carbon Dioxide (22-32) mmol/L BUN (7-17) mg/dL Creatinine (0.52-1.04) mg/dL Estimated GFR (>60) mL/min BUN/Creatinine Ratio (6-22) Glucose (70-100) mg/dL Calcium (8.4-10.2) mg/dL Total Bilirubin (0.2-1.3) mg/dL AST (14-36) IU/L ALT (<35) IU/L Alkaline Phosphatase (38-126) U/L Total Protein (6.3-8.2) g/dL Albumin (3.5-5.0) g/dL Globulin (1.7-4.1) g/dL Albumin/Globulin Ratio (1.0-2.8) SARS-CoV-2 (PCR) Negative (Negative) 12/18/22 Range/Units 11:52 WBC (4.5-11.0) X10^3/uL RBC (4.0-5.2) X10^6/uL Hgb (12.0-16.0) g/dL Hct (36-46) % MCV (80-100) fL MCH (26-34) PG MCHC (30-36) % RDW (11.6-14.8) % Plt Count (150-400) X10^3/uL Neut % (Auto) (50-75) % Lymph % (Auto) (25-40) % [place] % (Auto) (3-14) % Eos % (Auto) (2-4) % Baso % (Auto) (0-2) % Neut # (Auto) (4213-0573) /uL Lymph # (Auto) (8772-4228) /uL [place] # (Auto) (0-900) /uL Eos # (Auto) (0-450) /uL Baso # (Auto) (0-100) /uL D-Dimer (<500) ng/ml Sodium 140 (137-145) mmol/L Potassium 4.1 (3.4-5.1) mmol/L Chloride 103 (98-107) mmol/L Carbon Dioxide 29 (22-32) mmol/L BUN 6 L (7-17) mg/dL Creatinine 0.57 (0.52-1.04) mg/dL Estimated GFR > 60 (>60) mL/min BUN/Creatinine Ratio 10.5 (6-22) Glucose 107 H (70-100) mg/dL Calcium 9.4 (8.4-10.2) mg/dL Total Bilirubin 0.9 (0.2-1.3) mg/dL AST 24 (14-36) IU/L ALT 23 (<35) IU/L Alkaline Phosphatase 84 (38-126) U/L Total Protein 8.2 (6.3-8.2) g/dL Albumin 4.5 (3.5-5.0) g/dL Globulin 3.7 (1.7-4.1) g/dL Albumin/Globulin Ratio 1.2 (1.0-2.8) SARS-CoV-2 (PCR) (Negative) Urine Dip Bedside Urine Glucose Negative Bedside Urine Bilirubin - Negative Bedside Urine Ketone - Negative Urine Specific [place] 1.010 Bedside Urine Occult Blood - Negative Bedside Urine pH 8.0 Bedside Urine Protein - Negative Bedside Urine Urobilinogen - Negative Bedside Urine Nitrite - Negative Bedside Urine Leukocytes - Negative Esterase Imaging Data Chest x-ray: Radiologist's Impression: [address] [address] XRay Report Signed Patient: Linda Albrecht MR#: [id number] : 1985 Acct:[id number] Age/Sex: 37 / F Date of Service: 12/18/22 Loc: ED Accession Number: [id number] ?? Procedure: XR chest 1V Ordering Provider: Milan Gramajo MD PROCEDURE:? XR CHEST 1V ? INDICATIONS:? cough ? TECHNIQUE:? One view of the chest was acquired.? ? COMPARISON:? None. ? FINDINGS:? ? Surgical changes and devices:? None.? ? Lungs and pleura:? Lungs are clear.? No pleural effusions or pneumothorax.? ? Mediastinum:? Mediastinal contours appear normal.? Heart size is normal.? ? Bones and chest wall:? No suspicious bony lesions.? Overlying soft tissues appear unremarkable.? ? IMPRESSION:? ? No acute cardiopulmonary findings ? ? ? Approved by: Jose Trimble M.D. on 12/18/2022 at 11:15? [facility] Narrative Medical decision making narrative: Patient is COVID vaccinated. Complains of cough cold congestion runny nose for the past 2 weeks. Has had productive whitish sputum cough. Patient has asthma. Has been using her albuterol medications and is out of them. Patient also states may have UTI. Denies does not want a test.T achycardia noted, patient took breathing treatment prior to arrival. No history of blood clots in legs or lungs After history and exam urinalysis chest x-ray have been ordered, COVID test as well [facility] CC: Cough/dyspnea/dysuria Complicating co-morbidities: Asthma Data collected from: Patient Medical records reviewed: No previous visits for upper respiratory infection Differential considered: Includes but not limited to pneumonia bronchitis UTI/PE Exam documented above, pertinent findings include: Full and equal lung sounds, tachycardia Lab Test results independently reviewed as above. Pertinent findings: CBC reassuring WBC 9.0 hemoglobin 13.7 CMP sodium 140 potassium 4.1, COVID negative, D-dimer 396 EKG results, normal sinus rhythm normal EKG rate [address] elevation or depression Imaging studies independently reviewed: Chest x-ray no acute process Treatments: None required Re-evaluations: Reviewed results with patient. She agrees for discharge home. Heart rate has improved to 93. 97% room air. Patient in no respiratory distress. She agrees with treatment plan with Sav Chopra as well as refill for her asthma medications. She agrees no antibiotics at this time. Discussion: Appropriate for discharge home. Exam and laboratory studies kayla ging are reassuring. Still likely viral source but it is not COVID. Patient in no respiratory distress. She desires discharge home. Diagnosis: Asthmatic bronchitis Discharge Plan Departure Patient Disposition: Home Clinical Impression: Acute asthmatic bronchitis Instructions: DI for Asthma -- Adult, DI for Acute Bronchitis Activity Restrictions/Additional Instructions: Please see family doctor in a week for re-evaluation. Please do continue your asthma breathing treatments. Refills for your medications have been sent to your [facility]. Cough medication has been provided as well. Return if worse if any questions or concerns Prescriptions: New benzonatate 100 mg capsule 100 mg PO TID PRN (Reason: cough) Qty: 20 0RF albuterol sulfate [Ventolin HFA] 90 mcg/actuation HFA aerosol inhaler 2 inhalation INHALATION QID PRN (Reason: shortness of breath or wheezing) Qty: 6.7 0RF albuterol sulfate 2.5 mg /3 mL (0.083 %) solution for nebulization 2.5 mg inhalation Q4-6H PRN (Reason: shortness of breath or wheezing) Qty: 75 0RF No Action albuterol sulfate [Proventil HFA] 90 MCG/PUFF HFA aerosol inhaler 2 puff INH Q4HP PRNQty: 1 3RF ketoconazole [Nizoral] 2 % shampoo 1 joann Topical SEE INSTRUCTIONS Qty: 120 1RF levonorgestrel [Mirena] 1 EACH intrauterine device 52 mg INTRAU QDAY Qty: 0 metoclopramide HCl [Reglan] 10 mg tablet 10 mg PO Q6H PRN (Reason: nausea and vomiting) Qty: 20 0RF Referrals: Rosas Palm MD [Primary Care Provider] - Stand Alone Forms: Patient Portal/API
[2022-12-18 12:05] LABS: Add Manual Diff / Slide Review NO; Basophils Absolute Auto 100 /uL (0-100); Basophils Percent Auto 0.9 % (0-2); Eosinophils Absolute Auto 300 /uL (0-450); Eosinophils Percent Auto 3.2 % (2-4); Hematocrit 39.3 % (36-46); Hemoglobin 13.7 g/dL (12.0-16.0); Lymphocytes Absolute Auto 1300 /uL (1100-4500); Lymphocytes Percent Auto 14.9 % (25-40); Mean Corpuscular HGB Conc 34.8 % (30-36); Mean Corpuscular Hemoglobin 30.2 PG (26-34); Mean Corpuscular Volume 86.7 fL (80-100); Monocytes Absolute Auto 700 /uL (0-900); Monocytes Percent Auto 7.6 % (3-14); Neutrophils Absolute Auto 6600 /uL (1500-7000); Neutrophils Percent Auto 73.4 % (50-75); Platelet Count 301 X10^3/uL (150-400); Red Blood Cell Count 4.53 X10^6/uL (4.0-5.2); Red Cell Distribution Width 13.1 % (11.6-14.8)
[2022-12-18 12:14] LABS: D Dimer 396 ng/ml (<500)
[2022-12-18 12:17] LABS: Alanine Aminotransferase 23 IU/L (<35); Albumin 4.5 g/dL (3.5-5.0); Albumin Globulin Ratio 1.2 (1.0-2.8); Alkaline Phosphatase 84 U/L (38-126); Aspartate Aminotransferase 24 IU/L (14-36); BUN Creatinine Ratio 10.5 (6-22); Bilirubin Total 0.9 mg/dL (0.2-1.3); Blood Urea Nitrogen 6 mg/dL (7-17); Calcium 9.4 mg/dL (8.4-10.2); Carbon Dioxide 29 mmol/L (22-32); Chloride 103 mmol/L (98-107); Estimated Glomerular Filt Rate > 60 mL/min (>60); Globulin 3.7 g/dL (1.7-4.1); Glucose 107 mg/dL (70-100); HEMOLYSIS < 15 (0-50); Potassium 4.1 mmol/L (3.4-5.1); Sodium 140 mmol/L (137-145); Total Protein 8.2 g/dL (6.3-8.2)
== END 2022-12-18 13:26 | disposition home or self-care (01) ==
PROVIDERS: Emergency Provider Emergency Medicine; PCP Family Medicine
DX: J20.9 Acute bronchitis, unspecified (principal); J44.0 Chronic obstructive pulmonary disease with (acute) lower respiratory infection; Z20.822 Contact with and (suspected) exposure to COVID-19
CPT/HCPCS: 36415; 71045; 80053; 81003; 85025; 85379; 87635; 93005; 93010; 99283; 99284; C9803

== ENCOUNTER → 2023-02-04 10:41 | Outpatient (CLI) | payer OTHER, SELFPAY | PROVIDERS: PCP Family Medicine; Referring Provider Family Medicine; Visit Provider Family Medicine | DX: L81.3 Cafe au lait spots (principal); Z82.79 Family history of other congenital malformations, deformations and chromosomal abnormalities; Z83.49 Family history of other endocrine, nutritional and metabolic diseases | CPT/HCPCS: 36415; 83498 ==